=== PATIENT | female | born 1995 | race Caucasian/White ===

== ENCOUNTER 2019-05-29 13:08 | Outpatient (CLI) | payer OTHER ==
--- NOTE | 2019-05-29 14:52 | CT ---
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 No current symptoms. COMPARISON: None. TECHNIQUE: Multiple CT images were obtained of the face without IV contrast. As requested, 1 mm slice thickness reformats were constructed from the raw data. A plastic spacer device was placed within the mouth to provide separation of the upper and lower dentition. Axial, sagittal, and coronal reformatted images were constructed from the raw data. FINDINGS: No acute fracture is evident. There is mild mucosal thickening involving the maxillary sinuses and et hmoid air cells. Mild mucosal thickening is also present within the lower frontal sinuses. Osseous na ina septum is fairly midline. There is mild mucosal thickening seen involving the infundibulum of the ostiomeatal units bilaterally. No air fluid level is present. Orbital rims are intact. The TMJs appe ar within normal limits. Visualized cervical spine and intracranial contents are unremarkable appeari ng. Visualized orbital contents are within normal limits. 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 The upper aerodigestive tract appears within normal limits. Vi sualized aspects of the oral cavity appear within normal limits. IMPRESSION: Mild paranasal sinus disease. POS: [facility]
== END 2019-05-29 13:09 | disposition home or self-care (01) ==
LOC: BICCT 13:08
DX: Q75.9 Congenital malformation of skull and face bones, unspecified (principal); F64.0 Transsexualism; J32.9 Chronic sinusitis, unspecified
CPT/HCPCS: 70486